=== PATIENT | male | born 1995 | race Caucasian/White ===

== ENCOUNTER 2023-03-26 08:57 | Outpatient (CLI) | payer BC, SELFPAY | END 2023-03-26 08:58 | disposition home or self-care (01) | PROVIDERS: PCP Family Medicine; Visit Provider Family Medicine | DX: Z00.00 Encounter for general adult medical examination without abnormal findings (principal); Z13.6 Encounter for screening for cardiovascular disorders; Z76.89 Persons encountering health services in other specified circumstances | CPT/HCPCS: 80048; 80061 ==

== ENCOUNTER 2024-03-21 13:09 | Outpatient (CLI) | payer BC, SELFPAY | END 2024-03-21 13:10 | disposition home or self-care (01) | PROVIDERS: PCP Family Medicine; Visit Provider Physician Assistant Medical | DX: Z13.220 Encounter for screening for lipoid disorders (principal); Z13.0 Encounter for screening for diseases of the blood and blood-forming organs and certain disorders involving the immune mechanism; Z13.29 Encounter for screening for other suspected endocrine disorder | CPT/HCPCS: 80061; 82947; 84443 ==

== ENCOUNTER 2025-03-23 14:42 | Outpatient (CLI) | payer BC, SELFPAY | END 2025-03-23 14:43 | disposition home or self-care (01) | LOC: LKVREF 14:43 | PROVIDERS: PCP Family Medicine; Visit Provider Family Medicine | DX: Z00.00 Encounter for general adult medical examination without abnormal findings (principal) | CPT/HCPCS: 80048; 80061 ==